=== PATIENT | female | born 1995 | race African-American/Black ===

== ENCOUNTER 2017-07-15 19:27 | Emergency (ER) | payer SELFPAY ==
[2017-07-15] MEDS ORDERED: Acetaminophen 500 MG TAB ONE ×2 (20:06→20:09)
[2017-07-15 20:43] LABS: Bilirubin Negative (Negative); Blood, Urine Moderate (Negative); Glucose, Urine (Dipstick) Negative (Negative); Ketone, Urine 15 mg/dL (Negative); Nitrite Negative (Negative); Protein, Urine (Dipstick) Trace mg/dL (Neg-Trace)
[2017-07-15 20:55] LABS: Bacteria/HPF 3+ HPF (None Seen); WBC/HPF 0-3 HPF (0-3)
[2017-07-15 20:55] LABS: Anion Gap 11 mmol/L (10-20); BUN (Urea Nitrogen) 8 mg/dL (7.0-18.7); Calc. Creatinine Clearance 0 mL/min (70-130); Calcium 6.3 mg/dL (7.8-10.44); Carbon Dioxide 16 mmol/L (22-29); Chloride 117 mmol/L (98-107); Estimated GFR-MDRD Greater than 90
[2017-07-15 20:57] LABS: Hematocrit 31.1 % (36.0-47.0); Hypochromia SLIGHT = 6-15 cells (100X) (0-5/hpf); Mean Platelet Volume 6.5 fL (7.4-10.4); Microcytosis SLIGHT = 6-15 cells (100X) (0-5/hpf); Red Blood Cell (RBC) Count 4.16 mill/uL (4.00-5.20); Stomatocytes SLIGHT = 2-5 cells (100X) (0-1/hpf); White Blood Cell (WBC) Count 12.6 thou/uL (4.8-10.8)
[2017-07-15] MEDS ORDERED: Potassium Chloride 20 MEQ/100 ML PREMIX BAG ONE ×2 (21:49)
[2017-07-15] MEDS ORDERED: Potassium Chloride 20 MEQ TAB ONE (21:50)
[2017-07-15] MEDS ORDERED: Bicillin LA 1.2 MILLION UNITS/2 ML SYRINGE ONE (21:50)
[2017-07-15 23:54] LABS: Anion Gap 11 mmol/L (10-20)
[2017-07-15 23:55] LABS: BUN (Urea Nitrogen) 8 mg/dL (7.0-18.7); Calc. Creatinine Clearance 0 mL/min (70-130); Calcium 7.8 mg/dL (7.8-10.44); Carbon Dioxide 22 mmol/L (22-29); Chloride 110 mmol/L (98-107); Estimated GFR-MDRD Greater than 90
== END 2017-07-16 00:13 | disposition home or self-care (01) ==
LOC: SCSER 19:27
DX: J02.0 Streptococcal pharyngitis (principal)
CPT/HCPCS: 80048; 81003; 81015; 85025; 87430; 96361; 96365; 96366; 96372; J0561; J3480